=== PATIENT | female | born 1935 | race Hispanic/Latino ===

== ENCOUNTER 2016-08-11 14:14 | Emergency (ER) | payer MEDICARE ==
[2016-08-11] MEDS ORDERED: TDAP Vaccine 0.5 mL Syr IM ONE (14:55)
--- NOTE | 2016-08-11 15:14 | ED PDOC ---
Arrival/HPI - General Chief Complaint: Trauma Time Seen by Provider: 08/11/16 14:43 Historian: Patient - History of Present Illness Narrative History of Present Illness (Text): 08/11/16 15:05 80-year-old female presents today with right knee pain and swelling status post fall. Patient states this morning around 8 AM she was walking and tripped and fell landing on the right knee. Patient states she continued ambulating on the leg with a limp and went to her daycare and was sent home and advised to come to the emergency room for evaluation of the right knee pain and swelling. Patient states she has not taken any medications for pain. She denies fevers or chills. She denies hitting her head. She is complaining abrasion to the right forearm and abrasions to the palms of both hands. Patient unsure of her last tetanus shot. Denies chest pain or shortness of breath. Denies abdominal pain nausea or vomiting. Patient states she did not get dizzy. Patient states she just tripped and fell around 8 AM this morning. Patient rates the pain as a 7 out of 10 and describes the pain as pressure and sharp worse with movement. Past Medical History - Provider Review Nursing Documentation Reviewed: Yes - Travel History Have you recently traveled outside [place] w/in the past 3 mons?: No - Infectious Disease Hx of Infectious Diseases: None - Tetanus Immunization Tetanus Immunization: Unknown - Reproductive Menopause: Yes - Cardiac Hx Hypotension: Yes - Endocrine/Metabolic Hx Diabetes Mellitus Type 2: Yes - Psychiatric Hx Substance Use: No - Anesthesia Hx Anesthesia: Yes Hx Anesthesia Reactions: No Family/Social History - Physician Review Nursing Documentation Reviewed: Yes Family/Social History: Unknown Family HX Smoking Status: Unknown If Ever Smoked Hx Alcohol Use: No Hx Substance Use: No Allergies/Home Meds Allergies/Adverse Reactions: Allergies No Known Allergies Allergy (Verified 08/11/16 14:38) Home Medications: Home Meds Medication Instructions Recorded Confirmed Unobtainable 08/11/16 08/11/16 Review of Systems - Review of Systems Constitutional: absent: Fatigue, Fevers Respiratory: absent: SOB, Cough Cardiovascular: absent: Chest Pain, Palpitations Gastrointestinal: absent: Abdominal Pain, Diarrhea, Nausea, Vomiting Genitourinary Female: absent: Dysuria, Frequency, Hematuria Musculoskeletal: Arthralgias (right knee pain). absent: Back Pain, Neck Pain Skin: Other (abrasion to right arm, both palms) Neurological: absent: Headache, Dizziness Psychiatric: absent: Anxiety, Depression Physical Exam Vital Signs Reviewed: Yes Vital Signs Temp Pulse Resp BP Pulse Ox 08/11/16 15:23 99.7 F H 95 H 16 98 08/11/16 14:33 99.7 F H 97 H 20 121/73 97 Temperature: Afebrile Blood Pressure: Normal Pulse: Regular Respiratory Rate: Normal Appearance: Positive for: Well-Appearing, Non-Toxic, Comfortable Pain Distress: None Mental Status: Positive for: Alert and Oriented X 3 - Systems Exam Head: Present: Atraumatic Mouth: Present: Moist Mucous Membranes Neck: Present: Normal Range of Motion. No: MIDLINE TENDERNESS, Paraspinal Tenderness Respiratory/Chest: Present: Clear to Auscultation, Good Air Exchange. No: Respiratory Distress, Accessory Muscle Use Cardiovascular: Present: Regular Rate and Rhythm, Normal S1, S2. No: Murmurs Upper Extremity: Present: Normal ROM, Other (abrasions noted to right forearm along dorsal aspect; no active bleeding, small abrasion noted to right volar aspect of palm along ulnar aspect ) Lower Extremity: Present: Edema, NORMAL PULSES, Tenderness (right knee; + tenderness and swelling noted over the right knee. limited flexion of knee. no calf tenderness, abrasion noted over anterior aspect of knee. no bleeding; ), Swelling, Capillary Refill < 2 s. No: CALF TENDERNESS, Normal ROM, Erythema Skin: Present: Warm, Dry, Normal Color Psychiatric: Present: Alert, Oriented x 3 Medical Decision Making ED Course and Treatment: 08/11/16 15:21 Patient nontoxic well-appearing in no distress with stable vital signs All wounds were cleaned and irrigated with normal saline. Bacitracin applied. X-rays of the right knee:Findings: Extensive degenerative changes with joint space narrowing most prominently involving the medial compartment. Patellofemoral joint space narrowing. Osteophyte formation. Rotated lateral view. Small suprapatellar joint effusion. No acute displaced fracture identified. No evidence of radiopaque foreign body. Impression: Degenerative changes with moderate joint space narrowing of the medial compartment. Patellofemoral joint space narrowing. Small suprapatellar joint effusion. Toradol given IM tetanus updated case discussed with dr. dubois; he will see patient at bedside. joint aspiration performed. dr. dubois would like CT of knee; ct knee; FINDINGS: There is acute nondisplaced fracture at the mid to lower portion of the right patella. No evidence of other acute fracture. Advanced osteoarthritic changes seen at the right knee joint. There is small to moderate amount of right knee joint effusion. Small droplet of air seen also in the right knee joint. There are also foci of seen in the deep soft tissue suggestive of recent trauma. Subcutaneous edema seen at the anterior aspect of the right knee. No evidence of dislocation at the right knee. Vascular calcifications seen. IMPRESSION: Acute nondisplaced fracture at the right patella. Moderate amount of right knee joint effusion contains foci of air. Advanced osteoarthritic changes. Soft tissue swelling and posttraumatic changes seen at the anterior aspect of the right knee. Patient placed in knee immobilizer. will given rx for walker. I discussed all results with patient advised to followup with the orthopedist for the next 2 days. Return if symptoms worsen persist or new symptoms develop Impression: patella fracture, abrasions, arm tylenol every 4 hours as needed for pain Rest, ice, compression, elevation Use walker for ambulation Call dr. dubois on sunday to schedule follow up appointment. Followup with primary care physician within the next 2 days Return if symptoms worsen persist or if new symptoms develop - RAD Interpretation Radiology Orders: 08/11/16 14:55 KNEE RIGHT 2 VIEWS (AP & LAT) [RAD] Stat 08/11/16 16:42 EXT LOWER W/O CONTRAST RIGHT [CT] Stat - Medication Orders Current Medication Orders: Discontinued Medications Ketorolac Tromethamine (Toradol) 15 mg IM STAT STA Stop: 08/11/16 14:56 Last Admin: 08/11/16 15:05 Dose: 15 mg Tetanus/Reduced Diphtheria/Acell Pertussis (Boostrix Vaccine Inj) 0.5 ml IM .ONCE ONE Stop: 08/11/16 14:56 Last Admin: 08/11/16 15:33 Dose: 0.5 ml Disposition/Present on Arrival - Present on Arrival Any Indicators Present on Arrival: No History of DVT/PE: No History of Uncontrolled Diabetes: No Urinary Catheter: No History of Decub. Ulcer: No History Surgical Site Infection Following: None - Disposition Have Diagnosis and Disposition been Completed?: Yes Diagnosis: Patellar fracture, Abrasion forearm Disposition: HOME/ ROUTINE Disposition Time: 18:13 Patient Plan: Discharge Patient Problems: Current Active Problems Problem Status Onset Abrasion forearm Acute Patellar fracture Acute Condition: GOOD Discharge Instructions (ExitCare): Patellar Fracture (ED) Additional Instructions: tylenol every 4 hours as needed for pain Rest, ice, compression, elevation Use walker for ambulation Call dr. dubois on sunday to schedule follow up appointment. Followup with primary care physician within the next 2 days Return if symptoms worsen persist or if new symptoms develop Referrals: Nick Paez MD [Primary Care Provider] - Follow up with primary Ramon Dubois DO [Staff Provider] - Follow up with primary
[2016-08-11 15:32] VITALS: BP 121/73; PULSE 95; RESP 16; TEMP 99.7; O2SAT 98
--- NOTE | 2016-08-11 15:37 | RAD ---
Right knee radiographs Indication: Knee pain Comparison: None available Findings: Extensive degenerative changes with joint space narrowing most prominently involving the medial compartment. Patellofemoral joint space narrowing. Osteophyte formation. Rotated lateral view. Small suprapatellar joint effusion. No acute displaced fracture identified. No evidence of radiopaque foreign body. Impression: Degenerative changes with moderate joint space narrowing of the medial compartment. Patellofemoral joint space narrowing. Small suprapatellar joint effusion.
--- NOTE | 2016-08-11 17:59 | CT ---
PROCEDURE: CT of the right knee. HISTORY: r/o fx COMPARISON: Comparison is made to the previous x-ray of the right knee. TECHNIQUE: Axial and reformatted coronal and sagittal CT images of the right knee were obtained without IV contrast administration. FINDINGS: There is acute nondisplaced fracture at the mid to lower portion of the right patella. No evidence of other acute fracture. Advanced osteoarthritic changes seen at the right knee joint. There is small to moderate amount of right knee joint effusion. Small droplet of air seen also in the right knee joint. There are also foci of seen in the deep soft tissue suggestive of recent trauma. Subcutaneous edema seen at the anterior aspect of the right knee. No evidence of dislocation at the right knee. Vascular calcifications seen. IMPRESSION: Acute nondisplaced fracture at the right patella. Moderate amount of right knee joint effusion contains foci of air. Advanced osteoarthritic changes. Soft tissue swelling and posttraumatic changes seen at the anterior aspect of the right knee.
--- NOTE | 2016-08-11 18:55 | CON ---
DATE: 08/11/2016 I was called to see the patient this afternoon around 4:00 for acute swelling of her right knee when she slipped and fell this morning putting mail in the mail[place] on [address]. I saw her this afternoon. She has a tense effusion of her right knee. X-ray shows medial joint line osteoarthritis, no visible fracture, so we aspirated a tense effusion. She has good neurovascular status of the leg. She is on aspirin for her heart. We aspirated 60 mL of pure blood , of a hemarthrosis. There was an attempt to look for fat particles, but I could not see any putting it in the light and moving the syringe around, so we injected her with Depo-Medrol and Marcaine. She felt much relief and we took the tense effusion out with an 18 gauge needle and 60 mL syringe, which was used for the arthrocentesis. Then, we injected her with Depo-Medrol and Marcaine for symptomatic relief and to get rid of some of the inflammation and the x-rays did show medial joint line osteoarthritis, but I just wanted to make sure there was nondisplaced fracture by getting a CAT scan before she leaves and I will send her out with a soft knee immobilizer to protect it so she has a minimal chance of falling again and to do at home exercises. Will check up on the x-ray when it is done later, but she should be able to go home with help; she has a homemaker, and will follow her closely. She is going to call me up Sunday and see how she feels. Even a nondisplaced fracture will not need surgery; will just give her a knee immobilizer and a prescription for a walker to put partial weight on that left knee. FINAL DIAGNOSES: Osteoarthritis left knee, hemarthrosis, traumatic. Will evaluate for a nondisplaced fracture and put her in a knee immobilizer and touch toe pressure with a walker. the ct scan post arthrocenthesis shows a non diplaced patella fractore that does not need any surgery,just protcted wt bearing.to follow in office in 2 weeks. Ramon Cisneros DO cc: [id number] TT: 08/11/2016 18:54:41 Confirmation # [id number] Dictation # [id number] MTDD
== END 2016-08-11 19:18 | disposition home or self-care (01) ==
LOC: ED 14:14
DX: S82.001A Unspecified fracture of right patella, initial encounter for closed fracture (principal); S50.811A Abrasion of right forearm, initial encounter; W01.0XXA Fall on same level from slipping, tripping and stumbling without subsequent striking against object, initial encounter; Z23 Encounter for immunization; E11.9 Type 2 diabetes mellitus without complications
CPT/HCPCS: 20610; 73560; 73700; 90471; 90715; 96372; 99284; J1885

== ENCOUNTER 2018-08-06 12:15 | Outpatient (CLI) | payer MEDICARE | END 2018-08-06 12:16 | disposition home or self-care (01) | LOC: RAD 12:15 ==